=== PATIENT | female | born 1980 | race African-American/Black ===

== ENCOUNTER 2016-12-07 02:04 | Emergency (ER) | payer MEDICAID, OTHER ==
[~2016-12-07] VITALS: Ht 149.9 cm; Wt 54.0 kg
[2016-12-07 06:06] VITALS: BP 109/62
[2016-12-07 07:08] LABS: HEMATOCRIT. 35.3 % (36.0-48.0); HEMOGLOBIN. 12.1 g/dL (12.0-16.0); MEAN CORPUSCULAR HEMOGLOBIN 32.1 pg (28.0-32.0); MEAN CORPUSCULAR VOLUME 93.5 fL (81.0-99.0); PLATELET 185 x1000/uL (130-400); RED BLOOD CELL COUNT 3.77 mill/uL (4.2-5.4); RED CELL DISTRIBUTION WIDTH 11.6 % (11.6-14.6)
[2016-12-07 07:14] LABS: CLARITY URINE CLOUDY (CLEAR); COLOR URINE YELLOW (YELLOW); GLUCOSE URINE NEGATIVE (NEGATIVE); KETONES URINE NEGATIVE (NEGATIVE); LEUKOCYTE ESTERASE URINE 1+ (NEGATIVE); NITRITE URINE NEGATIVE (NEGATIVE); OCCULT BLOOD URINE 3+ (NEGATIVE); PH URINE 6.5 (4.5-8.0); PROTEIN URINE TRACE (NEGATIVE); SPECIFIC GRAVITY URINE 1.032 (1.005-1.030)
[2016-12-07 07:14] LABS: PROTHROMBIN TIME 10.2 sec (9.4-11.6)
[2016-12-07 07:16] LABS: CHLORIDE 105 mEq/L (98-107)
[2016-12-07 07:24] LABS: CARBON DIOXIDE 27 mEq/L (21-32)
[2016-12-07 07:27] LABS: *AMPHETAMINES SCREEN URINE NEGATIVE (NEGATIVE); *BARBITURATES SCREEN URINE NEGATIVE (NEGATIVE); *BENZODIAZEPINES SCREEN URINE NEGATIVE (NEGATIVE); *COCAINE SCREEN URINE NEGATIVE (NEGATIVE); METHADONE URINE SCREEN NEGATIVE (NEGATIVE); OPIATES URINE SCREEN NEGATIVE (NEGATIVE); PHENCYCLIDINE URINE SCREEN NEGATIVE (NEGATIVE)
[2016-12-07 07:28] LABS: CANNABINOID URINE SCREEN PRESUMTIVE POSITIVE (NEGATIVE)
[2016-12-07 09:49] LABS: PLATELET ESTIMATE NORMAL
== END 2016-12-07 08:24 | disposition home or self-care (01) ==
LOC: ER 02:04
DX: M94.0 Chondrocostal junction syndrome [Tietze] (principal); N39.0 Urinary tract infection, site not specified; F17.200 Nicotine dependence, unspecified, uncomplicated; R11.0 Nausea
CPT/HCPCS: 36415; 71010; 80053; 80305; 81001; 81025; 85025; 85610; 93005; 99285

== ENCOUNTER 2017-01-05 14:21 | Emergency (ER) | payer MEDICAID ==
[~2017-01-05] VITALS: Ht 160 cm; Wt 62.0 kg
[2017-01-05] MEDS ORDERED: HYDROCODONE/ACETAMINOPHEN 10/325MG TABLET PO ONE (18:30)
[2017-01-05] MEDS ORDERED: LIDOCAINE HCL 1% 20ML VIAL (Pyxis) INJ INFIL ONE (18:30)
[2017-01-05 19:06] VITALS: BP 115/76
== END 2017-01-05 20:00 | disposition home or self-care (01) ==
LOC: ER 15:00
DX: L02.211 Cutaneous abscess of abdominal wall (principal); F12.10 Cannabis abuse, uncomplicated
CPT/HCPCS: 99283; J3490; Z7610

== ENCOUNTER 2019-10-27 00:08 | Emergency (ER) | payer MEDICAID ==
[~2019-10-27] VITALS: Ht 149.9 cm; Wt 63.0 kg
[2019-10-27] MEDS ORDERED: ACETAMINOPHEN 325MG TABLET PO ONE (00:45)
[2019-10-27] MEDS ORDERED: ALBUTEROL 6.7GM HFA INHALER ORI PRN (01:00)
[2019-10-27 01:16] LABS: BASOPHILS % 0.6 % (0.0-2.0); EOSINOPHILS % 1.2 % (0.0-5.0); HEMATOCRIT. 37.1 % (36.0-48.0); HEMOGLOBIN. 12.8 g/dL (12.0-16.0); MEAN CORPUSCULAR HEMOGLOBIN 33.4 pg (28.0-32.0); MEAN PLATELET VOLUME 8.3 fl (7.4-10.4); MONOCYTES % 9.7 % (2.0-8.0); NEUTROPHILS % 47.5 % (40.0-76.0); PLATELET 272 x1000/uL (130-400); RED BLOOD CELL COUNT 3.83 mill/uL (4.2-5.4); RED CELL DISTRIBUTION WIDTH 12.2 % (11.6-14.6)
[2019-10-27 01:26] LABS: CHLORIDE 111 mEq/L (98-107)
[2019-10-27 02:35] VITALS: BP 107/61
== END 2019-10-27 03:07 | disposition home or self-care (01) ==
LOC: ER 00:08
DX: R05 Cough (principal); R06.02 Shortness of breath; R09.81 Nasal congestion; R09.89 Other specified symptoms and signs involving the circulatory and respiratory systems; R91.8 Other nonspecific abnormal finding of lung field; Z20.828 Contact with and (suspected) exposure to other viral communicable diseases; R03.0 Elevated blood-pressure reading, without diagnosis of hypertension
CPT/HCPCS: 36415; 71045; 80053; 85025; 87635; 93005; 99285; C9803

== ENCOUNTER 2020-08-15 08:49 | Emergency (ER) | payer MEDICAID ==
[~2020-08-15] VITALS: Ht 149.9 cm; Wt 63.0 kg
[2020-08-15] MEDS ORDERED: CEFTRIAXONE SODIUM 250 MG/VIAL IM ONE (09:45)
[2020-08-15] MEDS ORDERED: LIDOCAINE HCL 1% 20ML VIAL (Pyxis) INJ INFIL ONE (10:00)
[2020-08-15 10:30] LABS: CLARITY URINE CLEAR (CLEAR); COLOR URINE YELLOW (YELLOW); KETONES URINE TRACE (NEGATIVE); LEUKOCYTE ESTERASE URINE 1+ (NEGATIVE); NITRITE URINE NEGATIVE (NEGATIVE); OCCULT BLOOD URINE NEGATIVE (NEGATIVE); PROTEIN URINE NEGATIVE (NEGATIVE); SPECIFIC GRAVITY URINE 1.027 (1.005-1.030)
[2020-08-15 12:08] VITALS: BP 128/86
[2020-08-15] MEDS ORDERED: NITR-87 MT (12:09)
[2020-08-15] MEDS ORDERED: METR500T MT (12:09)
[2020-08-15] MEDS ORDERED: DOXY100C2 MT (12:09)
== END 2020-08-15 12:25 | disposition home or self-care (01) ==
LOC: ER 08:49
DX: R05 Cough (principal); N39.0 Urinary tract infection, site not specified; N76.0 Acute vaginitis; A59.9 Trichomoniasis, unspecified; Z79.899 Other long term (current) drug therapy
CPT/HCPCS: 71045; 81003; 81025; 87210; 87491; 87591; 93005; 96372; 99285; J0696; J3490

== ENCOUNTER 2022-06-03 15:54 | Emergency (ER) | payer MEDICAID, OTHER ==
[~2022-06-03] VITALS: Ht 149.9 cm; Wt 55.0 kg
[~2022-06-03 15:54] MED LIST: DOXY100C5 MT; METR500T MT; NITR-87 MT
[2022-06-03 16:05] VITALS: BP 122/82
[2022-06-03] MEDS ORDERED: ACETAMINOPHEN 325MG TABLET PO ONE (18:45)
[2022-06-03] MEDS ORDERED: T3 PO (19:38)
[2022-06-03] MEDS ORDERED: IBUP-2028 PO (19:38)
[2022-06-03] MEDS ORDERED: ACETAMINOPHEN 325MG TABLET ONE (20:17)
== END 2022-06-03 21:25 | disposition home or self-care (01) ==
LOC: ER 16:01
DX: S82.431A Displaced oblique fracture of shaft of right fibula, initial encounter for closed fracture (principal); X58.XXXA Exposure to other specified factors, initial encounter; Y93.89 Activity, other specified; Y92.018 Other place in single-family (private) house as the place of occurrence of the external cause
CPT/HCPCS: 29515; 73600; 99283; Z7610

== ENCOUNTER 2025-03-05 19:55 | Emergency (ER) | payer BC, OTHER ==
[~2025-03-05] VITALS: Ht 160 cm; Wt 61.0 kg
[~2025-03-05 19:55] MED LIST changes: +IBUP-2028 PO; +T3 PO
[2025-03-05 20:05] VITALS: TEMP 36.6; O2SAT 99
[2025-03-05 23:28] VITALS: BP 127/93; PULSE 77; RESP 17; O2SAT 96
== END 2025-03-05 23:30 | disposition home or self-care (01) ==
LOC: ER 19:55
DX: M79.641 Pain in right hand (principal); Z79.899 Other long term (current) drug therapy
CPT/HCPCS: 73130; 99283